=== PATIENT | male | born 1965 | race African-American/Black ===

== ENCOUNTER 2024-06-18 13:32 | Emergency (ER) | payer OTHER ==
[~2024-06-18] VITALS: Ht 177.8 cm; Wt 87.0 kg
[2024-06-18 13:35] VITALS: O2SAT 98
[2024-06-18] MEDS: ACETAMINOPHEN 325MG TABLET PO STA (14:10)
[2024-06-18 14:38] LABS: CHLORIDE 107 mEq/L (98-107); POTASSIUM 4.4 mEq/L (3.5-5.1); SODIUM 142 mEq/L (136-145)
[2024-06-18 14:39] LABS: CARBON DIOXIDE 32 mEq/L (21-32)
[2024-06-18 14:40] LABS: CALCIUM 9.8 mg/dL (8.7-10.4)
[2024-06-18 14:44] LABS: CREATININE 0.7 mg/dL (0.6-1.3); GLUCOSE 91 mg/dL (70-105); UREA NITROGEN BLOOD 7 mg/dL (9-23)
[2024-06-18 14:45] VITALS: TEMP 36.7
[2024-06-18 14:46] LABS: BASOPHILS % 0.4 % (0.0-2.0); EOSINOPHILS % 1.1 % (0.0-5.0); HEMATOCRIT. 45.5 % (42.0-52.0); HEMOGLOBIN. 14.8 g/dL (14.0-18.0); LYMPHOCYTES % 10.2 % (20.0-50.0); MEAN CORPUSCULAR HEMOGLOBIN 30.1 pg (28.0-32.0); MEAN CORPUSCULAR HGB CONC 32.5 g/dL (31.0-37.0); MEAN CORPUSCULAR VOLUME 92.6 fL (80.0-94.0); MEAN PLATELET VOLUME 9.8 fl (7.4-10.4); MONOCYTES % 6.6 % (2.0-8.0); NEUTROPHILS % 81.7 % (40.0-76.0); PLATELET 234 x1000/uL (130-400); RED BLOOD CELL COUNT 4.91 mill/uL (4.7-6.1); RED CELL DISTRIBUTION WIDTH 14.8 % (11.6-14.6); WHITE BLOOD COUNT 7.8 x1000/uL (4.5-11.0)
[2024-06-18 14:47] LABS: TROPONIN I HIGH SENSITIVITY 5 ng/L (3.0-53)
[2024-06-18 14:51] LABS: PROTHROMBIN TIME 10.4 sec (9.6-11.0)
[2024-06-18 16:18] VITALS: BP 147/65; PULSE 86; RESP 22; O2SAT 97
== END 2024-06-18 16:24 ==
LOC: ER 13:32
DX: R42 Dizziness and giddiness (principal); E11.9 Type 2 diabetes mellitus without complications; E78.00 Pure hypercholesterolemia, unspecified; Z79.899 Other long term (current) drug therapy
CPT/HCPCS: 36415; 71045; 80048; 83880; 84484; 85025; 93005; 99285